=== PATIENT | male | born 1960 | race Caucasian/White ===

== ENCOUNTER 2016-08-30 00:23 | Emergency (ER) | payer OTHER, BC ==
[~2016-08-30] VITALS: Ht 152.4 cm; Wt 79.9 kg
[2016-08-30 00:40] VITALS: TEMP 36.7; Ht 152.4 cm; Wt 79.9 kg
[2016-08-30] MEDS ORDERED: PROPARACAINE HCL 0.5% OP SOLN 15 ML BTL ONE (00:57)
[2016-08-30] MEDS ORDERED: OXYC1TAB3 PO (01:14)
[2016-08-30] MEDS ORDERED: BACITRACIN OP OINT 3.5 GM TUBE OP ONE (01:15)
[2016-08-30] MEDS ORDERED: OXYCODONE IR HOME PACK PO ONE (01:15)
[2016-08-30 01:43] VITALS: BP 128/87; PULSE 60; O2SAT 97
--- NOTE | 2016-08-30 22:19 | EMERGENCY ROOM VISIT NOTE ---
History First contact with patient: 00:54 Chief Complaint: EYE ASSESSMENT Stated Complaint: EYE PAIN,WELDERS FLASH, (WORKERS COMP) History of Present Illness The patient is a 56 year old male who presents to the Emergency Room with complaints of eye pain worsening over the past few hours. The patient is a stick welder by profession and states that he used a coworkers mask today. He went through his day without difficulty, but tonight he started having pain on his face and his eyes. He is having difficulty opening his eyes due to the pain which she rates a 9/10. He does not report distinct injury or trauma otherwise. He does not wear contact lenses and believes his tetanus is up-to- date. Review of Systems More than 10 systems were reviewed and otherwise negative with the exception of history of present illness. Past Medical/Surgical History No chronic medical disease Family History No pertinent family history Social History Smoking Status: Never Smoker Housing Status: lives with family Occupation Status: employed Current/Historical Medications Scheduled Oxycodone Immediate Rel Tab (Roxicodone Ir), 1-2 TAB PO Q4H Allergies Coded Allergies: No Known Allergies (Verified , 08/30/16) Physical Exam Vital Signs Date Time Temp Pulse Resp B/P Pulse Ox O2 Delivery O2 Flow Rate FiO2 08/30/16 01:43 60 18 128/87 97 08/30/16 00:40 36.7 66 16 163/83 98 Room Air Right Eye Acuity: 20/40 Left Eye Acuity: 20/40 Pain Rating (0-10): 7.0 Physical Exam VITALS: Vitals are noted on the nurse's note and reviewed by myself. Vital signs stable. Visual acuity as above GENERAL: Well-developed, well-nourished, white male who is in mild discomfort secondary to his stated complaint. Patient is cooperative with the examination. EYES: Pupils equal round and reactive to light and accommodation. Conjunctivae with mild injection. Slit-lamp examination does not show evidence of foreign body. Flourescein examination shows a spectacle uptake pattern consistent with UV keratitis. There is no laceration or abrasion. NOSE: Patent, turbinates without inflammation or discharge. MOUTH: Mucous membranes moist. Tonsils are not enlarged. Pharynx without erythema, blood, or exudate. Uvula midline. Airway patent. NECK: Supple without nuchal rigidity. No lymphadenopathy. No thyromegaly. Cervical spine is nontender. HEART: Regular rate and rhythm without murmurs gallops or rubs. LUNGS: Clear to auscultation bilaterally without wheezes, rales or rhonchi. No retractions or accessory muscle use. Medical Decision & Procedures Medications Administered Medications (Trade) Dose Ordered Sig/Leonor Route Start Time Stop Time Status Last Admin Dose Admin Oxycodone HCl (Roxicodone Immediate Rel 5MG Home Pack) 1 homepack UD ONCE PO 08/30/16 01:15 08/30/16 01:16 DC 08/30/16 01:34 1 HOMEPACK Bacitracin (Bacitracin Oph Oint) 1 appln NOW ONCE OP 08/30/16 01:15 08/30/16 01:16 DC 08/30/16 01:34 1 APPLN ED Course Physical exam and history were performed. Nursing notes and EMR were reviewed. Patient appears to have stick welder's flash based on history and examination. The patient did have relief of discomfort with Alcaine drops here in the department and was able to perform a sustained exam. He does have a speckled uptake pattern. The patient will be treated with OxyIR and bacitracin ophthalmic ointment. He will need to follow with ophthalmology tomorrow and was given information to perform this. The patient was otherwise invited back to the ER with any new, worsening, or concerning symptoms. The chart was completed utilizing [employer] Speech Voice Recognition Software. Grammatical errors, random word insertions, pronoun errors, and incomplete sentences are an occasional consequence of this system due to software limitations, ambient noise, and hardware issues. Any formal questions or concerns about the content, text, or information contained within the body of this dictation should be directly addressed to the provider for clarification. . Medical Decision Differential diagnosis includes, but is not limited to: Foreign body, abrasion, glaucoma, laceration, UV keratitis, and others Impression Primary Impression: Welders' flash Departure Information Dispostion Home / Self-Care Condition GOOD Prescriptions Oxycodone Immediate Rel Tab (ROXICODONE IR) 5 Mg Tab 1-2 TAB PO Q4H for Pain, #24 TAB Prov: Clement Son PA-C 08/30/16 Referrals Flo Rhodes D.O. Forms HOME CARE DOCUMENTATION FORM, IMPORTANT VISIT INFORMATION Patient Instructions My [facility] Additional Instructions You were seen and evaluated today on an emergency basis only. This is not a substitute for, or an effort to provide, complete comprehensive medical care. It is not possible to recognize and treat all injuries or illnesses in a single emergency department visit. For this reason it is recommended that you followup with Ophthalmology, Dr. Rhodes's office in the next 12-36 hours for recheck of your condition. Apply bacitracin ophthalmic ointment 3-4 times daily. For baseline pain relief you may alternate ibuprofen and acetaminophen every 4 hours for pain control. Take 600 mg ibuprofen (Advil) and then 4 hours later take 1000 mg acetaminophen (Tylenol). Do not take more than 3000 mg acetaminophen in a single day. Oxycodone (OxyIR) 5mg: Take ONE or TWO pills every FOUR to SIX hours for breakthrough pain. Avoid alcohol, operating machinery or dangerous equipment, working on ladders or roofs, DRIVING, or situations where being under the influence may be dangerous. It is recommended to use an [id number] stool softener such as Colace, 100mg twice daily while taking this medication to avoid constipation. You are welcome to return to the emergency department anytime with new, worsening, or concerning symptoms.
== END 2016-08-30 01:44 | disposition home or self-care (01) ==
LOC: C.EDB 00:24 → C.EDC 01:44
DX: S05.8X9A Other injuries of unspecified eye and orbit, initial encounter (principal); W89.0XXA Exposure to welding light (arc), initial encounter; Y99.0 Civilian activity done for income or pay